=== PATIENT | female | born 1995 | race African-American/Black ===

== ENCOUNTER → 2016-08-29 | Outpatient (CLI) | payer OTHER ==
[~2016-08-29] MED LIST: ADAL40KI INJ; BCPILLS PO; EPP3/2 IM; FERR1TAB13 PO; MRC50 PO; NAPR1TAB9 PO; PRED20TA PO
--- NOTE | 2016-08-29 15:26 | DIAGNOSTIC IMAGING REPORT ---
RIGHT FOOT MIN 3 VIEWS ROUTINE CLINICAL HISTORY: Right foot pain COMPARISON: 09/27/2015 DISCUSSION: The bony mineralization appears normal. No fractures or dislocations are visualized. There are no erosive or destructive changes. There is a mild pes planus deformity. IMPRESSION: Mild pes planus deformity. Otherwise unremarkable radiographic evaluation of the right foot. Electronically signed by: Efren Angeles M.D. 08/29/2016 3:24 PM Dictated Date/Time: 08/29/2016 3:22 PM
[2016-08-29 16:26] LABS: RHEUMATOID FACTOR < 10.0 U/mL (0-15); TOTAL IRON BINDING CAPACITY 345 mcg/dl (250-450); URIC ACID 1.7 mg/dl (2.6-7.2)
== END | disposition home or self-care (01) ==
LOC: C.RAD1850 14:49
PROVIDERS: ATTEND Internal Medicine Rheumatology
DX: K50.90 Crohn's disease, unspecified, without complications (principal); M35.7 Hypermobility syndrome; M21.41 Flat foot [pes planus] (acquired), right foot; M79.671 Pain in right foot; M79.672 Pain in left foot

== ENCOUNTER → 2016-10-01 | Outpatient (CLI) | payer OTHER ==
[2016-10-01 10:18] LABS: HEMATOCRIT 35.1 % (37-47); MEAN CELL VOLUME 82.2 fL (80-100); MEAN CORPUSCULAR HEMOGLOBIN 27.9 pg (25-34); MEAN CORPUSCULAR HGB CONC 33.9 g/dl (32-36); MEAN PLATELET VOLUME 9.8 fL (7.4-10.4); PLATELET COUNT 318 K/uL (130-400); RED BLOOD COUNT 4.27 M/uL (4.2-5.4); WHITE BLOOD COUNT 5.28 K/uL (4.8-10.8)
[2016-10-01 10:39] LABS: BASO % 0.4 %; BASO ABS # 0.02 K/uL (0-0.2); COMPLETE YES; EOS % 4.4 %; LYMPH % 51.9 %; LYMPH ABS # 2.74 K/uL (1.2-3.4); MONO % 6.4 %; NEUT % 36.9 %
[2016-10-01 10:47] LABS: CALCIUM URINE 5.1 mg/dl
[2016-10-01 10:55] LABS: ALT/SGPT 18 U/L (12-78); BLOOD UREA NITROGEN 10 mg/dl (7-18); BUN/CREATININE RATIO 16.8 (10-20); CALCIUM 8.6 mg/dl (8.5-10.1); CARBON DIOXIDE 23 mmol/L (21-32); CHLORIDE 107 mmol/L (98-107); GLUCOSE 81 mg/dl (70-99); POTASSIUM 3.5 mmol/L (3.5-5.1); SODIUM 141 mmol/L (136-145)
[2016-10-01 10:58] LABS: ALB/GLOB RATIO 0.9 (0.9-2); ALKALINE PHOSPHATASE 47 U/L (45-117); AST/SGOT 11 U/L (15-37)
== END | disposition home or self-care (01) ==
LOC: C.LAB1850 09:01
PROVIDERS: ATTEND Internal Medicine Rheumatology
DX: K50.90 Crohn's disease, unspecified, without complications (principal); M85.80 Other specified disorders of bone density and structure, unspecified site; E55.9 Vitamin D deficiency, unspecified; E61.8 Deficiency of other specified nutrient elements

== ENCOUNTER → 2016-10-16 | Outpatient (CLI) | payer OTHER | END | disposition home or self-care (01) | LOC: C.MAMM 12:29 | PROVIDERS: ATTEND Internal Medicine Rheumatology | DX: K50.90 Crohn's disease, unspecified, without complications (principal); M85.80 Other specified disorders of bone density and structure, unspecified site; E55.9 Vitamin D deficiency, unspecified; E61.8 Deficiency of other specified nutrient elements ==

== ENCOUNTER 2017-05-09 14:17 | Emergency (ER) | payer OTHER ==
[~2017-05-09] VITALS: Ht 154.9 cm; Wt 70.6 kg
[~2017-05-09 14:17] MED LIST changes: -ADAL40KI INJ; -EPP3/2 IM; -MRC50 PO; -PRED20TA PO
[2017-05-09 14:33] VITALS: Ht 154.9 cm; Wt 70.6 kg
[2017-05-09] MEDS ORDERED: FAMOTIDINE 20MG/102 ML D5W IV STA (14:52)
[2017-05-09] MEDS ORDERED: ONDANSETRON INJ 2 MG/ML 2 ML VIAL IV STA (14:52)
[2017-05-09] MEDS ORDERED: METHYLPREDNISOLONE 125 MG VIAL IV STA (14:52)
[2017-05-09] MEDS ORDERED: ADAL40KI INJ (14:54)
[2017-05-09] MEDS ORDERED: MRC50 PO (14:55)
[2017-05-09] MEDS ORDERED: EPP3/2 IM (16:03)
[2017-05-09] MEDS ORDERED: PRED20TA PO (16:03)
[2017-05-09 16:26] VITALS: BP 123/61; PULSE 79; TEMP 36.5; O2SAT 97
--- NOTE | 2017-05-09 18:26 | EMERGENCY ROOM VISIT NOTE ---
History Report prepared by Pablo: Naina Bustillos Under the Supervision of: Dr. Hermes Anderson M.D. First contact with patient: 14:36 Chief Complaint: ALLERGIC REACTION Stated Complaint: ALLERGIC REACTION Nursing Triage Summary: Pt presents from home via als. Pt has hx of allergy to peanuts, ate nepali food today and developed itchy throat/congestion/nausea. History of Present Illness The patient is a 21 year old female who presents to the Emergency Room with complaints of persistent allergic reaction starting around 1230. The patient presents to the ED by EMS. She received Benadryl in route. She is feeling slightly improved. She has a history of peanut allergy. She was eating some [place] food today and was not paying attention to the contents. There were peanuts in the food and she started reacted around 2 minutes after eating. She has not had anaphylaxis before and has not required an EpiPen in the past. She typically has hives and vomiting. She did have hives and vomiting today. She also had some itching in her throat. She denies any throat swelling or facial swelling. She denies any chance of . Source of History: patient Onset: 1230 Position: other (global) Quality: other (allergic reaction) Timing: other (persistent) Modifying Factors (Relieving): other (benadryl) Associated Symptoms: + vomiting, + rash, No SOB Note: Pt reports throat itching. Pt denies throat swelling, facial swelling. Review of Systems See HPI for pertinent positives & negatives. A total of 10 systems reviewed and were otherwise negative. Past Medical & Surgical Medical Problems: (1) Peanut allergy Family History No pertinent family history stated. Social History Smoking Status: Never Smoker Marital Status: single Occupation Status: [employer] student Current/Historical Medications Scheduled Adalimumab (Humira Pen), 40 MG INJ QOTHERWEEK Epinephrine (Epipen), 0.3 MG IM UD Mercaptopurine (Mercaptopurine), 1 TAB PO DAILY Prednisone (Prednisone), 3 TAB PO DAILY Allergies Coded Allergies: Amoxicillin (Unverified Allergy, Unknown, rash, 07/03/16) Physical Exam Vital Signs Date Time Temp Pulse Resp B/P (MAP) Pulse Ox O2 Delivery O2 Flow Rate FiO2 05/09/17 16:26 36.5 79 18 123/61 97 Room Air 05/09/17 15:41 74 18 116/77 98 Room Air 05/09/17 15:02 89 18 118/84 97 Room Air 05/09/17 14:50 105 05/09/17 14:33 37.1 128 18 132/86 97 Room Air 05/09/17 14:33 99 Physical Exam Constitutional: Vital signs reviewed. Eyes: Pupils are equal round reactive to light. Conjunctiva are noninjected. ENT: Pharynx is clear without erythema or exudate. No facial, lip, or uvular swelling. Mucous membranes are moist. Neck supple without meningeal signs. Respiratory: Clear to auscultation bilaterally. Breath sounds are equal bilaterally. No stridor or wheezing. Cardiovascular: Regular rate and rhythm. No rubs or gallops. GI: Soft, nondistended and nontender. Bowel sounds are present. Musculoskeletal: No peripheral edema. No lower extremity tenderness. Integumentary: No cyanosis. Neurological: The patient is awake and alert. No focal deficits. Psychiatric: Normal affect. Medical Decision & Procedures Medications Administered Medications (Trade) Dose Ordered Sig/Usha Route Start Time Stop Time Status Last Admin Dose Admin Methylprednisolone Sodium Succinate (Solu-Medrol IV) 125 mg NOW STAT IV 05/09/17 14:52 05/09/17 14:53 DC 05/09/17 15:01 125 MG Famotidine (Pepcid 20mg/100 ml) 20 mg ONE STAT IV 05/09/17 14:52 05/09/17 14:54 DC 05/09/17 15:01 20 MG Ondansetron HCl (Zofran Inj) 4 mg NOW STAT IV 05/09/17 14:52 05/09/17 14:53 DC 05/09/17 15:01 4 MG ED Course 1449: The patient was evaluated in room A2. A complete history and physical exam was performed. 1452: Zofran Inj 4 mg IV, Famotidine 20 mg IV, Solu-Medrol IV 125 mg IV. 1600: Upon reevaluation, the patient appeared to have improvement of her symptoms. She is ready to go home. I discussed jonny's findings with her. I reviewed indications for use of an EpiPen. She verbalized agreement of the treatment plan. She was discharged home. Medical Decision This is a 21-year-old female who presents with an acute allergic reaction to peanuts. I did perform a limited focused review of portions of the patient's old chart on the electronic medical record. The patient has had no recent pertinent visits to this hospital. I did evaluate the patient as noted above. I did treat the patient with Solu- Medrol, Pepcid and Zofran IV. We did observe the patient here in the emergency department. She did have significant improvement of her symptoms. She was given a prescription for prednisone and an EpiPen. I did instruct the patient on its use and indications. She was discharged in good condition and advised to continue antihistamines at home. Medication Reconcilliation Current Medication List: was personally reviewed by me Blood Pressure Screening Patient's blood pressure: Elevated blood pressure Blood pressure disposition: Referred to PCP Impression Primary Impression: Acute allergic reaction Scribe Attestation The scribe's documentation has been prepared under my direct and personally reviewed by me in its entirety. I confirm that the note above accurately reflects all work, treatment, procedures, and medical decision making performed by me. Departure Information Dispostion Home / Self-Care Prescriptions Epinephrine (EPIPEN) 0.3 Mg/0.3 Ml Inj 0.3 MG IM UD, #1 BOX Prov: Hermes Anderson M.D. 05/09/17 Prednisone (Prednisone) 20 Mg Tab 3 TAB PO DAILY, #12 TAB FOR 4 DAYS Prov: Hermes Anderson M.D. 05/09/17 Referrals No Doctor, Assigned (PCP) Forms HOME CARE DOCUMENTATION FORM, IMPORTANT VISIT INFORMATION Patient Instructions ED Allergic React Food, My [facility] Additional Instructions You have been examined and treated today on an emergency basis only. This is not a substitute for, or an effort to provide, complete comprehensive medical care. It is impossible to recognize and treat all injuries or illnesses in a single emergency department visit. It is therefore important that you follow up closely with your physician. Call as soon as possible for an appointment. Return for worsening symptoms or if you develop difficulty breathing, swelling to your tongue or throat or any other concerning symptoms. Problem Qualifiers Primary Impression: Acute allergic reaction Encounter type: initial encounter Qualified Codes: T78.40XA - Allergy, unspecified, initial encounter
== END 2017-05-09 16:47 | disposition home or self-care (01) ==
LOC: EDBD 14:17 → C.EDA 14:18
DX: T78.40XA Allergy, unspecified, initial encounter (principal); X58.XXXA Exposure to other specified factors, initial encounter; Z79.899 Other long term (current) drug therapy

== ENCOUNTER → 2017-07-03 | Day surgery (SDC) | payer OTHER ==
[2017-06-26 13:48] VITALS: Ht 154.9 cm; Wt 65.9 kg
[~2017-07-03] VITALS: Ht 154.9 cm; Wt 65.9 kg
[~2017-07-03] MED LIST changes: +ADAL40KI INJ; +EPP3/2 IM; -FERR1TAB13 PO; +LIDOCAINE HCL 2% 2 ML VIAL (20MG/ML) ONE; +MIDAZOLAM HCL 1 MG/ML 2ML VIAL ONE; +MRC50 PO; -NAPR1TAB9 PO; +ONDANSETRON INJ 2 MG/ML 2 ML VIAL ONE; +PROPOFOL IV EMULSION 10 MG/ML 20 ML VIAL IV ONE
[2017-07-03 12:13] VITALS: TEMP 36.6
--- NOTE | 2017-07-03 12:25 | Endo History and Physical ---
History & Physical Date of Service: Jul 03, 2017. Chief Complaint: Crohns Iliocolitis Referring Physician: [facility] History of Present Illness 21 yo female who presents for colonoscopy secondary to Crohn's Ileocolitis. Past Surgical History Hx Cardiac Surgery: No Hx Internal Defibrillator: No Hx Pacemaker: No Hx Abdominal Surgery: No Hx Post-Op Nausea and Vomiting: No Hx Cancer Surgery: No Hx Thoracic Surgery: No Hx Orthopedic: No Hx Urinary Tract Surgery: No Family History IBD Social History Smoking Status: Never Smoker Hx Substance Use: Yes (OCCASIONALLY MARIJUANA) Hx Alcohol Use: No Allergies Coded Allergies: Amoxicillin (Verified Allergy, Unknown, rash, 07/03/17) NUTS (Verified Allergy, Unknown, ANAPHYLAXIS, 06/26/17) Current Medications Reported Home Medications Medications Dose Route/Sig Max Daily Dose Days Date Category Dose Instructions Mercaptopurine 50 Mg Tab 1.5 Tab PO QAM 06/26/17 Reported Control Pills (Miscellaneous) Tab 1 Tab PO QAM 06/26/17 Reported Epipen (Epinephrine) 0.3 Mg/0.3 Ml Inj 0.3 Mg IM UD 05/09/17 Rx Humira Pen (Adalimumab) 40 Mg/0.8 Ml Kit 40 Mg INJ QOTHERWEEK 05/09/17 Reported 1 PEN EVERY OTHER WEEK, PER PATIENT Vital Signs Weight (Kilograms): 65.91 Height (Feet): 5 Height (Inches): 1 Date Time Temp Pulse Resp B/P (MAP) Pulse Ox O2 Delivery O2 Flow Rate FiO2 07/03/17 12:13 36.6 81 20 107/71 (83) 98 Room Air Physical Exam General Appearance: WD/WN, no apparent distress Respiratory/Chest: Auscultation: breath sounds normal Cardiovascular: Heart Auscultation: RRR Abdomen: Bowel Sounds: normal Inspection & Palpation: soft, non-distended, no tenderness, guarding & rebound Assessment and Plan Assessment: 21 yo female who presents for colonoscopy secondary to Crohn's Ileocolitis. Plan: Proceed with colonoscopy.
--- NOTE | 2017-07-03 13:11 | Discharge Instructions ---
Endoscopy Patient Instructions Date / Procedure(s) Performed Jul 03, 2017. Colonoscopy Allergy Information Coded Allergies: Amoxicillin (Verified Allergy, Unknown, rash, 07/03/17) NUTS (Verified Allergy, Unknown, ANAPHYLAXIS, 07/03/17) Discharge Date / Findings Jul 03, 2017. Crohn's Ileocolitis s/p biopsies of the terminal ileum and colon Medication Instructions OK to resume all medications today as prescribed Reported Home Medications Medications Dose Route/Sig Max Daily Dose Days Date Category Dose Instructions Mercaptopurine 50 Mg Tab 1.5 Tab PO QAM 06/26/17 Reported Control Pills (Miscellaneous) Tab 1 Tab PO QAM 06/26/17 Reported Epipen (Epinephrine) 0.3 Mg/0.3 Ml Inj 0.3 Mg IM UD 05/09/17 Rx Humira Pen (Adalimumab) 40 Mg/0.8 Ml Kit 40 Mg INJ QOTHERWEEK 05/09/17 Reported 1 PEN EVERY OTHER WEEK, PER PATIENT Provider Instructions Activity Restrictions - No exercising or heavy lifting for 24 hours. - Do not drink alcohol the day of the procedure. - Do not drive a car or operate machinery until the day after the procedure. - Do not make any important decisions or sign important papers in 24 hours after the procedure. Following Day: - Return to full activity which may include returning to work/school. Diet Start your diet with liquids and light foods (jello, soup, juice, toast). Then eat your usual diet if not nauseated. Treatment For Common After Affects For mild abdominal pain, bloating, or excessive gas: - Rest - Eat lightly - Lie on right side Follow-Up Information Follow-up with [facility] as scheduled Anesthesia Information What You Should Know You have had a procedure that required some medicine to reduce anxiety and discomfort. This treatment is called moderate sedation. After receiving the treatment, you may be sleepy, but you will be able to breathe on your own. The effects of the treatment may last for several hours. Follow these instructions along with Activity/Diet recommendations noted above: * Do NOT do anything where dizziness or clumsiness would be dangerous. * Rest quietly at home today, then you can be up and about tomorrow. * Have a responsible person stay with you the rest of today. * You may have had an I.V. today. If so, you may take the dressing off later today. Recommendations Call your doctor if: * Trouble breathing * Continuous vomiting for more than 24 hours * Temperature above 101 degrees * Severe abdominal pain or bloating * Pain not relieved by pain medicine ordered * There is increased drainage or redness from any incision * A large amount of rectal bleeding greater than 2-3 tablespoons. (If you had a polyp/s removed or have hemorrhoids, a small amount of blood - from the rectum is to be expected.) * You have any unanswered questions or concerns. IN THE EVENT OF A SERIOUS EMERGENCY, GO TO THE NEAREST EMERGENCY ROOM Your discharge instructions were prepared by provider David Barclay. Patient Instructions Signature Page Rosa Maria Holden Patient (or Guardian) Signature/Date: I have read and understand the instructions given to me by my caregivers. Caregiver/RN/Doctor Signature/Date: The above-named patient and/or guardian has received patient instructions on this date. + Original Patient Signature Page (only) stays with chart. Please make copy for patient.
[2017-07-03 13:39] VITALS: BP 114/62; PULSE 66; O2SAT 99
--- NOTE | 2017-07-03 13:55 | Anesthesiology Progress Note ---
Anesthesia Post Op Note Date & Time Jul 03, 2017 at 13:55 Vital Signs Pain Intensity: 0 Vital Signs Past 12 Hours Date Time Temp Pulse Resp B/P (MAP) Pulse Ox O2 Delivery O2 Flow Rate FiO2 07/03/17 13:39 66 20 114/62 (79) 99 Room Air 07/03/17 13:24 68 20 119/70 (86) 99 Room Air 07/03/17 13:09 86 20 110/66 (81) 100 Room Air 07/03/17 12:13 36.6 81 20 107/71 (83) 98 Room Air Notes Mental Status: alert / awake / arousable, participated in evaluation Pt Amnestic to Procedure: Yes Nausea / Vomiting: adequately controlled Pain: adequately controlled Airway Patency, RR, SpO2: stable & adequate BP & HR: stable & adequate Hydration State: stable & adequate Anesthetic Complications: no major complications apparent
--- NOTE | 2017-07-03 14:37 | GI REPORT ---
Procedure Date: 07/03/2017 12:39 PM Procedure: Colonoscopy Indications: Disease activity assessment of Crohn's disease of the small bowel and colon Medicines: Monitored Anesthesia Care Complications: No immediate complications. Estimated Blood Loss: Estimated blood loss: none. Procedure: Pre-Anesthesia Assessment: - Prior to the procedure, a History and Physical was performed, and patient medications and allergies were reviewed. The patient's tolerance of previous anesthesia was also reviewed. The risks and benefits of the procedure and the sedation options and risks were discussed with the patient. All questions were answered, and informed consent was obtained. Prior Anticoagulants: The patient has taken no previous anticoagulant or antiplatelet agents. ASA Grade Assessment: II - A patient with mild systemic disease. After reviewing the risks and benefits, the patient was deemed in satisfactory condition to undergo the procedure. After I obtained informed consent, the scope was passed under direct vision. Throughout the procedure, the patient's blood pressure, pulse, and oxygen saturations were monitored continuously. The On-site loaner was introduced through the anus and advanced to the terminal ileum. The colonoscopy was performed without difficulty. The patient tolerated the procedure well. The quality of the bowel preparation was good. The terminal ileum, the appendiceal orifice and the rectum were photographed. Findings: The perianal and digital rectal examinations were normal. The terminal ileum appeared normal. Biopsies were taken with a cold forceps for histology. The colon (entire examined portion) appeared normal. Several random biopsies were obtained with cold forceps for histology in the entire colon. Impression: - The examined portion of the ileum was normal. Biopsied. - The entire examined colon is normal. - Several random biopsies were obtained in the entire colon. Recommendation: - Resume previous diet. - Continue present medications. - Repeat colonoscopy for surveillance based on pathology results. - Return to GI office as previously scheduled. David Alexandra DO Deny 07/03/2017 2:36:59 PM This report has been signed electronically. Note Initiated On: 07/03/2017 12:39 PM I attest to the content of the Intraoperative Record and orders documented therein, exceptions below
== END | disposition home or self-care (01) ==
LOC: C.GI 11:41
PROVIDERS: ATTEND Internal Medicine
DX: K50.00 Crohn's disease of small intestine without complications (principal); F12.90 Cannabis use, unspecified, uncomplicated; Z88.0 Allergy status to penicillin; Z79.3 Long term (current) use of hormonal contraceptives; Z88.1 Allergy status to other antibiotic agents